=== PATIENT | female | born 1935 | race Caucasian/White ===

== ENCOUNTER 2018-01-25 18:06 | Emergency (ER) | payer OTHER ==
[~2018-01-25] VITALS: Ht 157.5 cm; Wt 70.4 kg
[~2018-01-25 18:06] MED LIST: ACETAMINOPHEN325 M1 PO; AMBIEN10 MG PO; AQUAPHOR OINTM105 GM TP; AUGMENTIN875 MG PO; BENAZEPRIL HCL20 MG PO; CEPACOL SORE T1 EAC9 MM; DICYCLOMINE HCL10 MG PO; DILAUDID2 MG PO; DOCUSATE SODIU100 MG PO; DULCOLAX10 MG PR; DURAGESIC12 MCG TD; DURAGESIC25 MCG TD; ELIQUIS5 MG PO; FENTANYL1 EAC5 TD; FISH OIL300 MG PO; FLEXERIL5 MG PO; FLORA-Q PO; HYDROCODON-ACE1 EAC7 PO; LATANOPROST2.5 ML BOTH EYES; LIDOCAINE HCL20 ML MM; LOMOTIL TABLET1 EACH PO; LORAZEPAM0.5 MG PO; LORAZEPAM1 MG PO; LOTENSIN20 MG PO; MELATONIN5 M1 PO; METOPROLOL TAR100 MG PO; MILK OF MAGN PO; MIRAPEX0.25 MG PO; MOBIC15 MG PO; NORCO 5/3251 TABLET PO; NORVASC10 MG PO; NORVASC5 MG PO; PERCOCET 7.51 TABLET PO; PRAVACHOL80 MG PO; PRAVASTATIN SOD40 MG PO; PRAVASTATIN SOD80 MG PO; REMERON15 M2 PO; TRAMADOL HCL50 MG PO; ZITHROMAX Z-PA250 MG PO
[2018-01-25 18:36] LABS: HEMATOCRIT 50.3 % (36.0-46.0); HEMOGLOBIN 17.6 G/DL (11.9-15.5); MCV 97.1 FL (83-99); PLATELET COUNT 156 K/uL (156-360); RBC DIS.WIDTH-CV 13.5 % (11.8-14.6); RBC DIS.WIDTH-SD 48.7 % (39-53); RED BLOOD COUNT 5.18 M/uL (3.80-5.20)
[2018-01-25 18:43] LABS: CHLORIDE 101 mEq/L (99-109); POTASSIUM 3.9 mEq/L (3.7-5.4); SODIUM 137 mEq/L (136-147)
[2018-01-25 18:44] LABS: GLUCOSE 108 mg/dL (70-99)
[2018-01-25 18:48] LABS: CREATININE 0.7 mg/dL (0.6-1.3); GFR ESTIMATE (CALCULATED) > 59 mL/min/
[2018-01-25 18:49] LABS: UREA NITROGEN (BUN) 18 mg/dL (9-23)
[2018-01-25 19:43] LABS: APPEARANCE CLEAR ((CLEAR)); BILIRUBIN NEGATIVE; BLOOD SMALL; COLOR YELLOW ((YELLOW)); GLUCOSE (STRIP) NEGATIVE; KETONES 20; LEUKOCYTES NEGATIVE; NITRITE NEGATIVE; PROTEIN (STRIP) 100; SPECIFIC GRAVITY 1.018 (1.000-1.030)
[2018-01-25 19:48] LABS: BACTERIA NONE SEEN /HPF; EPITHELIAL CELLS NONE SEEN /HPF; MUCUS 1+ /LPF; RED BLOOD CELLS 0-5 /HPF (0-5); UCUL ADDED? NO; WHITE BLOOD CELLS 0-5 /HPF (0-5)
[2018-01-25 21:48] VITALS: BP 125/102
== END 2018-01-25 21:54 ==
LOC: EME 18:06
PROVIDERS: Emergency Medicine
DX: F03.91 Unspecified dementia, unspecified severity, with behavioral disturbance (principal); I10 Essential (primary) hypertension; E78.5 Hyperlipidemia, unspecified; Z87.440 Personal history of urinary (tract) infections; Z79.01 Long term (current) use of anticoagulants
CPT/HCPCS: 80048; 81003; 85027; 99281; 99284; J1630

== ENCOUNTER 2018-02-28 22:45 | Observation (INO) | payer OTHER ==
[~2018-02-28] VITALS: Ht 152.4 cm; Wt 68.0 kg
[2018-03-01 01:01] LABS: APPEARANCE TURBID ((CLEAR)); BILIRUBIN NEGATIVE; BLOOD LARGE; COLOR YELLOW ((YELLOW)); GLUCOSE (STRIP) NEGATIVE; KETONES 5; LEUKOCYTES MODERATE; NITRITE POSITIVE; PROTEIN (STRIP) 100; SPECIFIC GRAVITY 1.018 (1.000-1.030); UROBILINOGEN 0.2 MG/DL (0.2-1.0)
[2018-03-01] MEDS ORDERED: CIPRO500 MG PO (01:16)
[2018-03-01 01:25] LABS: UCUL ADDED? YES; WHITE BLOOD CELLS TNTC /HPF (0-5)
[2018-03-01 02:03] LABS: TROP-I INTERPRETATION NEGATIVE; TROPONIN-I 0.02 ng/mL (0.0-0.30)
[2018-03-01 02:10] LABS: HEMATOCRIT 52.4 % (36.0-46.0); MCH 33.7 PG (29.0-34.0); MCHC 35.7 G/DL (30.0-36.0); NRBC (%) 0.3 /100 WBC (0-0); PLATELET COUNT 139 K/uL (156-360); RBC DIS.WIDTH-CV 13.9 % (11.8-14.6); RBC DIS.WIDTH-SD 48.5 % (39-53); RED BLOOD COUNT 5.55 M/uL (3.80-5.20); WHITE BLOOD COUNT 7.1 K/uL (4.1-10.2)
[2018-03-01 02:12] LABS: HEMOGLOBIN 18.7 G/DL (11.9-15.5); MCV 94.4 FL (83-99)
[2018-03-01 02:26] LABS: CHLORIDE 102 mEq/L (99-109); SODIUM 137 mEq/L (136-147)
[2018-03-01 02:32] LABS: CREATININE 0.8 mg/dL (0.6-1.3); GFR ESTIMATE (CALCULATED) > 59 mL/min/
[2018-03-01 02:33] LABS: UREA NITROGEN (BUN) 23 mg/dL (9-23)
[2018-03-01 02:35] LABS: GLUCOSE 111 mg/dL (70-99); POTASSIUM 5.4 mEq/L (3.7-5.4)
[2018-03-01 04:41] VITALS: BP 127/77
[2018-03-01 07:53] LABS: TROP-I INTERPRETATION NEGATIVE; TROPONIN-I 0.03 ng/mL (0.0-0.30)
[2018-03-01 08:00] VITALS: BP 135/88
[2018-03-01] MEDS ORDERED: ATIVAN0.5 MG PO (10:56)
[2018-03-01] MEDS ORDERED: DULCOLAX10 MG PR (10:57)
[2018-03-01] MEDS ORDERED: KLONOPIN0.5 M1 PO (10:58)
[2018-03-01] MEDS ORDERED: MILK OF MAGN PO (11:00)
[2018-03-01] MEDS ORDERED: EUCERIN ORIGIN250 ML TP (11:03)
[2018-03-01] MEDS ORDERED: SILVADENE20 GM TP (11:05)
[2018-03-01] MEDS ORDERED: DURAGESIC12 MCG TD (11:07)
[2018-03-01] MEDS ORDERED: PERCOCET 5/31 TABLET PO (11:08)
[2018-03-01] MEDS ORDERED: LOPRESSOR100 M1 PO (11:11)
[2018-03-01] MEDS ORDERED: NORVASC5 MG PO (11:11)
[2018-03-01] MEDS ORDERED: LATANOPROST 0.7.5 ML OP (11:12)
[2018-03-01] MEDS ORDERED: BACLOFEN10 MG PO (11:14)
[2018-03-01] MEDS ORDERED: BENAZEPRIL HCL20 MG PO (11:14)
[2018-03-01] MEDS ORDERED: CYMBALTA30 MG PO (11:16)
[2018-03-01] MEDS ORDERED: ELIQUIS2.5 MG PO (11:17)
[2018-03-01 11:25] VITALS: BP 119/56
[2018-03-01 14:14] LABS: TROP-I INTERPRETATION NEGATIVE; TROPONIN-I 0.02 ng/mL (0.0-0.30)
[2018-03-01 16:23] VITALS: BP 115/55
[2018-03-01 20:00] VITALS: BP 125/91
[2018-03-02] VITALS: BP 137/83
[2018-03-02 07:30] VITALS: BP 138/69
[2018-03-02 12:07] VITALS: BP 142/78
[2018-03-02 15:29] VITALS: BP 148/64
[2018-03-02 17:15] VITALS: BP 196/90
[2018-03-02 19:41] VITALS: BP 131/85
[2018-03-03] VITALS: BP 136/80
[2018-03-03 04:00] VITALS: BP 127/81
[2018-03-03 04:38] LABS: BASOPHIL (%) 0.3 % (0-1); BASOPHIL COUNT 0.1 K/uL (0-0.1); EOSINOPHIL (%) 0.1 % (0-5); HEMATOCRIT 49.6 % (36.0-46.0); HEMOGLOBIN 17.7 G/DL (11.9-15.5); IMMATURE GRANULOCYTE (%) 0.5 % (0.0-0.7); LYMPHOCYTE (%) 10.2 % (15-42); LYMPHOCYTE COUNT 1.5 K/uL (1.0-2.8); MCH 33.5 PG (29.0-34.0); MCHC 35.7 G/DL (30.0-36.0); MCV 93.9 FL (83-99); MONOCYTE (%) 18.1 % (3-12); MONOCYTE COUNT 2.7 K/uL (0-0.8); NEUTROPHIL (%) 70.8 % (45-76); NEUTROPHIL COUNT 10.5 K/uL (1.8-6.4); PLATELET COUNT 179 K/uL (156-360); RBC DIS.WIDTH-CV 13.6 % (11.8-14.6); RBC DIS.WIDTH-SD 47.1 % (39-53); RED BLOOD COUNT 5.28 M/uL (3.80-5.20); WHITE BLOOD COUNT 14.9 K/uL (4.1-10.2)
[2018-03-03 04:49] LABS: CHLORIDE 102 mEq/L (99-109); SODIUM 133 mEq/L (136-147)
[2018-03-03 04:51] LABS: GLUCOSE 134 mg/dL (70-99)
[2018-03-03 04:55] LABS: CREATININE 0.7 mg/dL (0.6-1.3); GFR ESTIMATE (CALCULATED) > 59 mL/min/
[2018-03-03 04:56] LABS: UREA NITROGEN (BUN) 11 mg/dL (9-23)
[2018-03-03 05:01] LABS: POTASSIUM 4.3 mEq/L (3.7-5.4)
[2018-03-03 08:12] VITALS: BP 118/74
[2018-03-03 11:37] VITALS: BP 121/71
[2018-03-03] MEDS ORDERED: CIPROFLOXACIN500 M1 PO (12:18)
[2018-03-03] MEDS ORDERED: KLONOPIN0.5 M1 PO (12:20)
[2018-03-03] MEDS ORDERED: PERCOCET 5/31 TABLET PO (12:20)
[2018-03-03] MEDS ORDERED: DURAGESIC12 MCG TD (12:20)
== END 2018-03-03 15:43 ==
LOC: EME → TRA 22:45 → EME 22:45 → EDBD 22:45 → EDOF 03-01 02:20 → 4SOUTH 03-01 02:20 → ENRESERV 03-01 02:46 → 4SOUTH 03-01 04:33 → ENPENDDIS 03-03 12:26 → 4SOUTH 03-03 15:43
PROVIDERS: Emergency Medicine; Family Medicine
DX: S00.83XA Contusion of other part of head, initial encounter (principal); F05 Delirium due to known physiological condition; R45.1 Restlessness and agitation; R07.9 Chest pain, unspecified; N39.0 Urinary tract infection, site not specified; F03.91 Unspecified dementia, unspecified severity, with behavioral disturbance; F41.9 Anxiety disorder, unspecified; F32.9 Major depressive disorder, single episode, unspecified; I10 Essential (primary) hypertension; I48.91 Unspecified atrial fibrillation; E78.5 Hyperlipidemia, unspecified; J45.909 Unspecified asthma, uncomplicated; M19.90 Unspecified osteoarthritis, unspecified site; I73.9 Peripheral vascular disease, unspecified; G89.29 Other chronic pain; K44.9 Diaphragmatic hernia without obstruction or gangrene; Z79.01 Long term (current) use of anticoagulants; W01.0XXA Fall on same level from slipping, tripping and stumbling without subsequent striking against object, initial encounter; Z88.5 Allergy status to narcotic agent; Z88.8 Allergy status to other drugs, medicaments and biological substances; Y92.129 Unspecified place in nursing home as the place of occurrence of the external cause
CPT/HCPCS: 70450; 71045; 72170; 80048; 81003; 82948; 84484; 85025; 85027; 87077; 87086 GA; 87186; 90839; 93005; 94799; 99281; 99284; G0378; J0744; J1630; J2060